=== PATIENT | male | born 1965 | race Caucasian/White ===

== ENCOUNTER → 2019-10-07 10:24 | Outpatient (POV) | payer MEDICAID, SELFPAY ==
[2019-10-07 10:35] VITALS: BP 136/92; PULSE 114; RESP 18; O2SAT 99; BMI 26.5
--- NOTE | 2019-10-07 10:59 | HMH.PMCON ---
Assessment and Plan (1) Low back pain Current visit: Yes Status: Chronic Category: Medical Code(s): M54.5 - Low back pain (2) Degenerative joint disease (DJD) of lumbar spine Current visit: Yes Status: Chronic Category: Medical Code(s): M47.816 - Spondylosis without myelopathy or radiculopathy, lumbar region (3) Lumbar radiculopathy Current visit: Yes Status: Chronic Category: Medical Code(s): M54.16 - Radiculopathy, lumbar region - Assessment and plan all Dx Assessment and Plan for all problems:: We will start the patient on diclofenac 75 mg 1 tablet p.o. twice daily. He is been instructed to stop taking naproxen while taking diclofenac. We will also start him on Flexeril 10 mg 1 tablet p.o. 3 times daily. We will schedule him for a lumbar epidural steroid injection at L4-L5. He is not on any anticoagulation therapy. He will continue with a home stretching program. We will see the patient back in clinic following his injection to reassess his symptoms. He has been instructed to contact the clinic if he has any concerns before his next appointment. Dr. Sparks has reviewed this note and agrees with this plan of care. This note was dictated using voice recognition software and make contain errors or omissions. HPI - Data of Consult Consult date: 10/07/19 Requesting Physician: Susie Saini APRN Primary Care Provider: Bhraat Mendoza - Consult Narrative Reason for consult: Low back pain History of present illness: Mr. Garland is a 53 year old male who presents today for consultation for low back pain with radiation into his left groin and left leg. Patient says he is also having numbness and tingling into his left foot. Patient says that he woke one morning, approximately 2 months ago, and had severe low back pain with radiation into his left groin and left leg. Patient says he has had this pain in the past and has had to receive epidural steroid injection by Dr. Sparks. He says he gets approximately 90 to 95% relief with the injection up to 6 months. He says his pain has returned. He would like to discuss possible injective therapy. He is not on any anticoagulation therapy. He does continue with a home stretching program. Patient says that his care provider did prescribe him naproxen to take as an anti-inflammatory. CC: Susie Saini APRN [facility] History I have reviewed the patient's past medical history: Yes Medical History: Reports:: Diabetes Mellitus Type 1, Hypertension *Have you ever received a pneumonia vaccine?: Yes *Have you received a flu vaccine this season?: Yes Other Medical History: Reports: Arthritis Laterality Cases: Right: Arthroscopy Shoulder Amputation: No Fractures: No - *Social History Smoking Status: Never smoker Alcohol Intake: never Substance Use Type: denies use *Occupational Status:: other Housing: house Household Members: other *Travel in the last 8 weeks: None Family Hx:: Diabetes, Hypertension Review of Systems - Review of Systems Review of Systems General: No recent weight changes, no fever, no sleep disturbances Respiratory: No cough, no shortness of air, no recurring pulmonary infections Cardiovascular/peripheral vascular: No chest pain, no palpitations, no edema, no shortness of breath Gastrointestinal: No new onset incontinence, normal bowel movements reported Genitourinary: No new onset incontinence Musculoskeletal: Low back pain, left groin pain, left leg pain, left foot pain Psychiatric: Normal mood/affect Neurological: [Denies weakness in extremities], [denies balance issues] Meds Home Medications Medication Instructions Recorded Confirmed Type simvastatin 5 mg tablet 5 mg PO QPM #30 tab 05/06/18 11/05/18 Rx prednisone 20 mg tablet 20 mg PO BID #10 tab 11/18/18 Rx blood sugar diagnostic strips See Dose Instructions .ROUTE 12/02/18 Rx .MEDSUPPLY #100 each lancets 33 gauge See Dose Instructions .ROUTE 12/02/18 Rx .
--- NOTE | 2019-10-07 11:02 | P.CONS_ITS ---
Assessment and Plan (1) Low back pain Current visit: Yes Status: Chronic Category: Medical Code(s): M54.5 - Low back pain (2) Degenerative joint disease (DJD) of lumbar spine Current visit: Yes Status: Chronic Category: Medical Code(s): M47.816 - Spondylosis without myelopathy or radiculopathy, lumbar region (3) Lumbar radiculopathy Current visit: Yes Status: Chronic Category: Medical Code(s): M54.16 - R adiculopathy, lumbar region - Assessment and plan all Dx Assessment and Plan for all problems:: We will start the patient on diclofenac 75 mg 1 tablet p.o. twice daily. He is been instructed to stop taking naproxen while taking diclofenac. We will also start him on Flexeril 10 mg 1 tablet p.o. 3 times daily. We will schedule him for a lumbar epidural steroid injection at L4-L5. He is not on any anticoagulation therapy. He will continue with a home stretching program. We will see the patient back in clinic following his injection to reassess his symptoms. He has been instructed to contact the clinic if he has any concerns before his next appointment. Dr. Sparks has reviewed this note and agrees with this plan of care. This note was dictated using voice recognition software and make contain errors or omissions. HPI - Data of Consult Consult date: 10/07/19 Requesting Physician: Susie Saini APRN Primary Care Provider: Bharat Mendoza - Consult Narrative Reason for consult: Low back pain History of present illness: Mr. Garland is a 53 year old male who presents today for consultation for low back pain with radiation into his left groin and left leg. Patient says he is also having numbness and tingling into his left foot. Patient says that he woke one morning, approximately 2 months ago, and had severe low back pain with radiation into his left groin and left leg. Patient says he has had this pain in the past and has had to receive epidural steroid injection by Dr. Sparks. He says he gets approximately 90 to 95% relief with the injection up to 6 months. He says his pain has returned. He would like to discuss possible injective therapy. He is not on any anticoagulation therapy. He does continue with a home stretching program. Patient says that his care provider did prescribe him naproxen to take as an anti-inflammatory. CC: Susie Saini APRN [facility] History I have reviewed the patient's past medical history: Yes Medical History: Reports:: Diabetes Mellitus Type 1, Hypertension *Have you ever received a pneumonia vaccine?: Yes *Have you received a flu vaccine this season?: Yes Other Medical History: Reports: Arthritis Laterality Cases: Right: Arthroscopy Shoulder Amputation: No Fractures: No - *Social History Smoking Status: Never smoker Alcohol Intake: never Substance Use Type: denies use *Occupational Status:: other Housing: house Household Members: other *Travel in the last 8 weeks: None Family Hx:: Diabetes, Hypertension Review of Systems - Review of Systems Review of Systems General: No recent weight changes, no fever, no sleep disturbances Respiratory: No cough, no shortness of air, no recurring pulmonary infections Cardiovascular/peripheral vascular: No chest pain, no palpitations, no edema, no shortness of breath Gastrointestinal: No new onset incontinence, normal bowel movements reported Genitourinary: No new onset incontinence Musculoskeletal: Low back pain, left groin pain, left leg pain, left foot pain Psychiatric: Normal mood/affect Neurological: [Denies weakness in extremities], [denies b
== END ==
PROVIDERS: PCP Family Medicine; Visit Provider Clinical Nurse Specialist Family Health
DX: M54.5 Low back pain (principal); M47.816 Spondylosis without myelopathy or radiculopathy, lumbar region; M54.16 Radiculopathy, lumbar region
CPT/HCPCS: 99202

== ENCOUNTER → 2019-11-23 10:01 | Outpatient (POV) | payer MEDICAID, SELFPAY ==
[2019-11-23 10:32] VITALS: BP 142/77; PULSE 74; RESP 18; O2SAT 99; BMI 24.3
--- NOTE | 2019-11-23 12:49 | HMH.PAINSOAP ---
[facility] Pain Management SOAP Note Subjective:: Patient is a pleasant 53-year-old white male who we are treating for low back pain. Patient had an lumbar epidural steroid injection and did extremely well with it. Patient states most of his pain now is in his left hip he would like to move forward with a left hip injection. Patient is also on Flexeril and diclofenac. He is doing well with these medications. He rates his pain 8 out of 10 however he states that this pain is arthritic in nature. ROS General: no recent weight change, no fever, no sleep disturbances Respiratory: no cough, no shortness of air, no recurring pulmonary infections Cardiovascular/Peripheral Vascular: No chest pain, No palpitations, no edema, no shortness of breath. Gastrointestinal: no new onset incontinence, normal bowel movements reported Genitourinary: no new onset incontinence Musculoskeletal: Back pain, left hip pain Psychiatric: normal mood/ affect Neurological: [denies new onset weakness in extremities], [denies new onset balance issues] Objective:: Physical Exam General: Alert and oriented x3, no acute distress, pleasant and cooperative, [on room air] Lungs: Resps E/U, Symmetrical chest expansion, Eyes: PERRL Musculoskeletal: Flexion and extension of lumbar spine somewhat guarded secondary to pain, deep tendon reflexes normal, strength in upper and lower extremities [5/5], antalgic gait noted, extreme point tenderness over left rater trochanteric bursa Neurological: speech clear, senior government program analyst equal, no gross sensory deficits Assessment:: Left hip pain, bursitis, degenerative disc disease lumbar spine with lumbar radiculopathy Plan:: We will continue the patient's diclofenac 75 mg 1 p.o. twice daily and Flexeril 10 mg 1 p.o. 3 times daily. We will set him up for a left greater trochanteric bursa injection. I will follow-up with the patient after this reassess his symptoms at that time he is been instructed to call the office if he has any issues prior to his next appointment. Dr. Sparks has reviewed this note and agrees with this plan of care. This note was dictated using voice recognition software and may contain errors or omissions [facility] History I have reviewed the patient's past medical history: Yes Medical History: Reports:: Diabetes Mellitus Type 1, Hypertension *Have you ever received a pneumonia vaccine?: Yes *Have you received a flu vaccine this season?: Yes Other Medical History: Reports: Arthritis Laterality Cases: Right: Arthroscopy Shoulder Amputation: No Fractures: No - *Social History Smoking Status: Never smoker Alcohol Intake: never Substance Use Type: denies use *Occupational Status:: other Housing: house Household Members: spouse, other *Travel in the last 8 weeks: None Family Hx:: Diabetes, Hypertension
== END ==
PROVIDERS: Visit Provider Clinical Nurse Specialist Family Health
DX: M25.552 Pain in left hip (principal); M51.16 Intervertebral disc disorders with radiculopathy, lumbar region; M71.9 Bursopathy, unspecified
CPT/HCPCS: 99212

== ENCOUNTER → 2020-01-11 11:07 | Outpatient (POV) | payer MEDICAID, SELFPAY ==
[2020-01-11 11:40] VITALS: BP 110/80; PULSE 82; RESP 18; O2SAT 98; BMI 25.8
--- NOTE | 2020-01-11 11:45 | P.CONS_ITS ---
[facility] Pain Management SOAP Note Subjective:: Patient is a pleasant 54-year-old white male who presents today for follow-up after intra-articular left hip injection. Patient got some relief from this. Patient pain has returned he has been told in the past he will need surgery on that hip. He rates his pain 8 out of 10. Patient and I discussed a repeat intra-articular injection to help hold him over until a follow-up appointment with his orthopedic surgeon. ROS General: no recent weight change, no fever, no sleep disturbances Respiratory: no cough, no shortness of air, no recurring pulmonary infections Cardiovascular/Peripheral Vascular: No chest pain, No palpitations, no edema, no shortness of breath. Gastrointestinal: no new onset incontinence, normal bowel movements reported Genitourinary: no new onset incontinence Musculoskeletal: Left hip pain Psychiatric: normal mood/ affect Neurological: [denies new onset weakness in extremities], [denies new onset balance issues] Objective:: Physical Exam General: Alert and oriented x3, no acute distress, pleasant and cooperative, [on room air] Lungs: Resps E/U, Symmetrical chest expansion, [CTA bilateral] Eyes: PERRL Musculoskeletal: Flexion and extension of lumbar spine somewhat guarded secondary to pain, deep tendon reflexes normal, strength in upper and lower extremities [5/5], [abnormal gait noted] decreased range of motion left hip secondary to pain Neurological: speech clear, feed mill operator equal, no gross sensory deficits Assessment:: Degenerative disc disease lumbar spine with lumbar radiculopathy and left hip osteoarthritis Plan:: We will schedule him for a left intra-articular hip injection and start him on diclofenac 75 mg 1 p.o. twice daily. He understands he needs to stop his naproxen. We will also encourage him to set up a follow-up appointment with your orthopedic surgeon. Dr. Sparks has reviewed this note and agrees with this plan of care. This note was dictated using voice recognition software and may contain errors or omissions [facility] History I have reviewed the patient's past medical history: Yes Medical History: Reports:: Diabetes Mellitus Type 1, Diabetes Mellitus Type 2, Hypertension Denies:: Cancer, Internal Pacemaker, MRSA, Seizures *Have you ever received a pneumonia vaccine?: Yes *Have you received a flu vaccine this season?: Yes Other Medical History: Reports: Arthritis Laterality Cases: Right: Arthroscopy Shoulder Other Surgeries: No: Pacemaker Amputation: No Fractures: No - *Social History Smoking Status: Never smoker Alcohol Intake: never Substance Use Type: denies use *Occupational Status:: other Housing: house Household Members: spouse, other *Travel in the last 8 weeks: None Family Hx:: Diabetes, Hypertension
== END ==
PROVIDERS: Visit Provider Clinical Nurse Specialist Family Health
DX: M51.16 Intervertebral disc disorders with radiculopathy, lumbar region (principal); M16.12 Unilateral primary osteoarthritis, left hip
CPT/HCPCS: 99212

== ENCOUNTER → 2020-02-21 13:04 | Outpatient (POV) | payer MEDICAID, SELFPAY ==
[2020-02-21 13:22] VITALS: BP 150/86; PULSE 97; RESP 18; O2SAT 98; BMI 25.1
--- NOTE | 2020-02-21 13:41 | HMH.PAINSOAP ---
[facility] Pain Management SOAP Note Subjective:: Patient is a 54-year-old white male who presents today for follow-up. Patient complains of low back and leg pain. Along with hip pain. He has had several injections and is not happy with how long they have lasted. Patient has an MRI and some diagnostic imaging showing mild osteoarthritis of his hips along with some mild degeneration in his low back. Patient is requesting Lortab today. I discussed with him we would not be prescribing him any Lortab. I offered potential other clinics that he may benefit from if he is wanting pain management. He does not want to go to the [facility] pain management clinic. Patient rates his pain a 9 out of 10 today. He is in no acute distress. ROS General: no recent weight change, no fever, no sleep disturbances Respiratory: no cough, no shortness of air, no recurring pulmonary infections Cardiovascular/Peripheral Vascular: No chest pain, No palpitations, no edema, no shortness of breath. Gastrointestinal: no new onset incontinence, normal bowel movements reported Genitourinary: no new onset incontinence Musculoskeletal: Back pain, leg pain, hip pain Psychiatric: normal mood/ affect Neurological: [denies new onset weakness in extremities], [denies new onset balance issues] Objective:: Physical Exam General: Alert and oriented x3, no acute distress, pleasant and cooperative, [on room air] Lungs: Resps E/U, Symmetrical chest expansion, Eyes: PERRL Musculoskeletal: Flexion and extension of lumbar spine somewhat guarded secondary to pain, deep tendon reflexes normal, strength in upper and lower extremities [5/5], [abnormal gait noted] Neurological: speech clear, endoscopy technician equal, no gross sensory deficits Assessment:: Osteoarthritis, d degenerative disc disease lumbar spine Plan:: Patient is requesting medical management. I discussed with him other clinics that do present medication management and referred him on to this. Dr. Sparks has reviewed this note and agrees with this plan of care. This note was dictated using voice recognition software and may contain errors or omissions [facility] History I have reviewed the patient's past medical history: Yes Medical History: Reports:: Diabetes Mellitus Type 1, Diabetes Mellitus Type 2, Hypertension Denies:: Cancer, Internal Pacemaker, MRSA, Seizures *Have you ever received a pneumonia vaccine?: Yes *Have you received a flu vaccine this season?: Yes Other Medical History: Reports: Arthritis Laterality Cases: Right: Arthroscopy Shoulder Other Surgeries: No: Pacemaker Amputation: No Fractures: No - *Social History Smoking Status: Never smoker Alcohol Intake: never Substance Use Type: denies use *Occupational Status:: other Housing: house Household Members: spouse, other *Travel in the last 8 weeks: None Family Hx:: Diabetes, Hypertension
== END ==
PROVIDERS: PCP Family Medicine; Visit Provider Clinical Nurse Specialist Family Health
DX: M19.90 Unspecified osteoarthritis, unspecified site (principal); M51.36 Other intervertebral disc degeneration, lumbar region
CPT/HCPCS: 99212